=== PATIENT | female | born 1955 | race Caucasian/White ===

== ENCOUNTER 2022-03-15 11:57 | Observation (INO) | payer MEDICARE, SELFPAY ==
[2022-03-15] VITALS (93 sets, daily range): BP systolic 85–138; BP diastolic 71–104; PULSE 111–147; RESP 20–51; TEMP 36.7–37.2; O2SAT 78–100; BMI 12.9
--- NOTE | 2022-03-15 12:03 | XR_ITS ---
WS: [id number] EXAMINATION: XR chest 1V portable [id number] REASON FOR EXAM: resp failure COMPARISON: None available. ORDER DATE: 03/15/2022 12:03 PM TECHNIQUE: A single, portable frontal chest x-ray was obtained. X-RAY FINDINGS: The lungs are clear with generalized hyperinflation. Pleural spaces are clear. No pleural effusions o r pneumothorax. Cardiomediastinal silhouette is unremarkable except for minimal atherosclerotic aortic change. No pastora dence for pulmonary edema. Soft tissue and osseous structures are unremarkable. Nipple shadow superimposing the left mid lateral lung but at the same level as the right nipple which is further lateral in position.. XR/XR chest 1V portable [id number] IMPRESSION: Diffuse COPD
--- NOTE | 2022-03-15 12:09 | P.HP_ITS ---
Providers/Chief Complaint Admitting Physician: Gaurav Wyman MD Chief Complaint: Flu History of Present Illness Carolina Cortez is a 66 year old female transferred from [facility] with respiratory failure. Patient herself cannot answer any questions on arrival. From my understanding she received a fair amount of Versed in route for difficulty keeping BiPAP on. It is my understanding she presented there with shortness of breath. She did not have any chest discomfort. There are notes that she uses 5 L of oxygen at home chronically. She denied any chest discomfort, but did complain of a chronic cough. In the emergency department she was diagnosed with influenza, and her troponin was also noted to be elevated. From their note she had no evidence of non-ST elevation myocardial infarction. They initiated BiPAP for shortness of breath, she received Solu- Medrol, ceftriaxone, heparin, Zithromax. Daughter arrives later, and confirms the above history. 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 This was a hospitalization at [facility] at which time she had COVID. It is unclear what investigation she had performed. Review of Systems General: Reports: ROS unobtainable due to mental status Medications/Allergies Allergies Allergy/AdvReac Type Severity Reaction Status Date / Time No Known Allergies Allergy Verified 03/15/22 12:38 PFSH Acute PFSH: Medical History (Updated 03/15/22 @ 14:36 by Gaurav Wyman MD) COPD (chronic obstructive pulmonary disease) Chronically on 5 L of oxygen Hypertension Malnutrition Surgical History (Updated 03/15/22 @ 14:32 by Gaurav Wyman MD) History of hernia repair History of hysterectomy Family History (Updated 03/15/22 @ 14:32 by Gaurav Wyman MD) Other Cancer Social History (Updated 03/15/22 @ 14:32 by Gaurav Wyman MD) Smoking and tobacco status: former smoker Alcohol intake: never Physical Exam Narrative: General exam demonstrates a confused, very thin female who on redirection can nod her head and follow a few directions briefly. She continues to fight with the BiPAP. HEENT: Atraumatic and normocephalic. Pupils equally round. Oropharynx I did not examine as she is currently on BiPAP Neck is supple no lymphadenopathy thyromegaly Cardiovascular tachycardic, no murmur Lungs diminished breath sounds bilaterally. Few expiratory wheezes. No crackles Abdomen is scaphoid. Positive bowel sounds. No obvious organomegaly exam deferred Extremities no cyanosis clubbing or edema, extremely thin, cap refill brisk Skin no rash Neuro: Confused but no obvious focal deficits Data 03/15/22 13:40 03/15/22 13:40 Other Labs: ABG at outside hospital demonstrated pH 7.42, PCO2 43, PO2 of 124 on 5 L Influenza A PCR was positive, COVID PCR negative Blood cultures were obtained Sodium 137, potassium 4.0, chloride 99, bicarb 24, BUN 8, creatinine 0.43, gl ucose 119, LFTs normal, INR normal, lactic acid 1.2, BNP 556, white blood cell count 8.2, hemoglobin 15.6, platelet count 125 Initial troponin 28, 2-hour 151, 6-hour 312 Chest x-ray no obvious abnormality EKG rate of 107, no evidence of ST elevation but this is a written report and the actual EKG I could not review. A&P Assessment and plan (1) Acute respiratory failure with hypoxia and hypercapnia: Placed on BiPAP/AVAPS Repeat ABG after she is stabilized To facilitate BiPAP Precedex was ordered. She appears to be more comfortable at this current time Suspect this is secondary to COPD exacerbation and influenza. (2) NSTEMI (non-ST elevated myocardial infarction): Suspect this is secondary to type II elevation Request records from hospitalization at [facility] Check echocardiogram For now full dose anticoagulation, aspirin, statin (3) Acute exacerbation of chronic obstructive airways disease: IV Solu-Medrol 60 mg every 12 hours DuoNeb every 4 hours Budesonide AVAPS (4) Hypertension: Will reconcile med list Currently blood pressure stable (5) Protein calorie malnutrition: Appears to have at least moderate to severe protein calorie malnutrition From my understanding she is on a medication to try to increase caloric intake at home. This will become clearer when medicine list is reconciled Overall she is significantly frail, and this can complicate her hospitalization greatly. Discussed in detail with daughter. Plan Other medical problems as outlined in past medical history Full code currently, but discussed in detail with daughter. She will clarify with family DVT prophylaxis with full dose Lovenox currently. Pepcid for GI prophylaxis Attestations Medical Necessity Statement*: Will need greater than 2 midnight stay for evaluation and treatment of acute respiratory failure Critical Care Time: The high probability of a clinically significant, sudden or life threatening deterioration of the patient's [pulmonary, cardiac] system(s) required my full and direct attention, intervention and personal management. The critical care time is as shown. 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
[2022-03-15 12:28] LABS: ABG PH Result 7.23 (7.35-7.45); Arterial Blood Gas Hematocrit 49.5 % (37-47); Base Excess ABG -2.5 mmol/L (-2.0-2.0); Blood Gas Allen Test Pos; Blood Gas LPM 4.5 %; Blood Gas Operator Identificat CAK; Blood Gas Sample Site Radial, right; Blood Gas Sample Type Arterial; HCO3 ABG 26.8 mmol/L (22-26); Oxygen Device NC; PO2 ABG 48.2 mmHg (80.0-100.0)
[2022-03-15 12:33] LABS: ABG PCO2 63.8 mmHg (35-45)
[2022-03-15] MEDS: ipratropium-albuterol 3 mL Neb INHALATION ×3 (12:35→19:46)
[2022-03-15] MEDS: dexmedetomidine 400 MCG in sodium chloride 0.9% (100 ml) 100 ML IV (12:52)
--- NOTE | 2022-03-15 13:08 | ECG_ITS ---
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 Measurements Intervals [place] Rate: 134 P: 92 CT: 130 QRS: 82 QRSD: 99 T: 90 QT: 289 QTc: 432 Interpretive Statements SINUS TACHYCARDIA WITH OCCASIONAL VENTRICULAR PREMATURE COMPLEXES INDETERMINATE AXIS LOW QRS VOLTAGE IN EXTREMITY LEADS [QRS DEFLECTION < 0.5 mV IN LIMB LEADS] ANTERIOR MYOCARDIAL INFARCTION , OF INDETERMINATE AGE [40+ ms Q WAVE AND/OR ST/T ABNORMALITY IN V3/V4] No previous ECG available for comparison Electronically Signed On 03-15-2022 13:14:30 MICROBIOLOGICAL LAB TECHNICIAN by Kelly Hameed M.D. [id number]
[2022-03-15] MEDS: vancomycin 500 MG in sodium chloride 0.9% (plus) 100 ML 200 MG IV (13:32)
[2022-03-15] MEDS: levofloxacin-dextrose 5 % 750 MG/150 ML PREMIX 100 MG IV (13:41)
[2022-03-15] MEDS: famotidine 20 mg/2 mL INJ IVP (13:44)
[2022-03-15 14:01] LABS: Basophils % 0.1 %; Hematocrit 50.2 % (37.0-47.0); Hemoglobin 15.5 g/dL (11.5-15.3); Lymphocytes # 0.6 10^3/uL (0.8-4.8); Lymphocytes % 4.5 %; Mean Corpuscular HGB Conc 30.9 g/dL (30.0-36.0); Mean Corpuscular Hemoglobin 30.3 pg (28.0-34.0); Mean Corpuscular Volume 98.2 fl (81-99); Mean Platelet Volume 12.7 fL (7.4-10.4); Monocytes # 1.1 10^3/uL (0.2-0.9); Monocytes % 8.1 %; Neutrophils # 12.14 10^3/uL (1.8-7.7); Neutrophils % 86.7 %; Nucleated Red Blood Cells % 0 %; Platelet Count 149 10^3/cmm (130-400); Red Blood Count 5.11 10^6/uL (4.1-5.3); Red Cell Distribution Width 13.3 % (12.1-15.1)
[2022-03-15 14:15] LABS: Magnesium 2.3 mg/dL (1.7-2.3)
[2022-03-15 14:18] LABS: Troponin T (5th) Once 381 ng/L (0-10)
--- NOTE | 2022-03-15 14:28 | USCV_ITS ---
Carolina Cortez Age: 66 Gender: F : 1955 Exam Date: 03/15/2022 15:53 Ordering Phys: Gaurav Wyman MD Technologist: CT [place]am [place] [facility] [place] Indication: sob PROCEDURES: The venous duplex Doppler examination of both lower extremities was performed in the standard fashion. In addition, the posterior tibial and peroneal trunk were evaluated. Bilaterally, the common femoral, superficial femoral, profunda femoral, popliteal, posterior tibial, greater saphenous veins, and the peroneal trunk were identified and interrogated in the standard fashion. FINDINGS: Normal 2-D Doppler and augmentation and compressibility throughout the lower extremity venous structures. Additional imaging through the proximal calf veins also reveals no thrombus. Limited evaluation of the greater saphenous vein is patent with no thrombus. CONCLUSIONS No DVT bilateral lower extremities. Dr. Myrtle Leong DO (Electronically Signed) Final Date: 15 March 2022 16:34 S
[2022-03-15 14:32] LABS: Alanine Aminotransferase 19 U/L (0-33); Albumin Level 3.9 g/dL (3.5-5.2); Alkaline Phosphatase 88 U/L (35-105); Anion Gap 19.7 (5-19); Aspartate Amino Transferase 37 U/L (0-32); Blood Urea Nitrogen 19 mg/dL (8-23); Carbon Dioxide 26 mmol/L (22-29); Chloride 99 mmol/L (98-107); Glucose 123 mg/dL (65-115); Osmolality Calculated 294 mOsm/kg (285-295); Potassium 4.7 mmol/L (3.5-5.1); Sodium 140 mmol/L (136-145); Total Bilirubin 0.3 mg/dL (0.15-1.2); Total Protein 6.9 g/dL (6.6-8.7)
[2022-03-15 15:02] LABS: ABG PCO2 44.7 mmHg (35-45); Arterial Blood Gas Hematocrit 44.5 % (37-47); Blood Gas Allen Test Pos; Blood Gas Operator Identificat CAK; Blood Gas Sample Site Radial, right; Blood Gas Sample Type Arterial; Carboxyhemoglobin 0.7 %THgb (0.4-20.1); HCO3 ABG 27.4 mmol/L (22-26); HGB O2 Sat 97.9 % (95-100); Ionized Calcium Level - ABG 1.1 mmol/L (1.1-1.4); Methemoglobin 0.8 % (0.4-1.5); Oxygen Device BIPAP; Oxygen Saturation ABG 99.4; Potassium Level - ABG 4.3 mmol/L (3.5-5.0); Total Hemoglobin 14.5 g/dL (12-16)
--- NOTE | 2022-03-15 15:16 | PC.PHAR ---
pts daughter verified pts medication-pts daughter states the pt had a build up of metoprolol er 25mg daily ext med history shows last filled 11/12/21 90d/s-rx filled 01/14/22 90d/s for lexapro 5mg daily-pts daughter states pt was on 10mg daily filled 12/24/21 90d/s daughter states was changed to 5mg daily-ext med history shows buspar 5mg tid prn last filled 12/10/21 30d/s pts daughter states pt only takes prn-notes are made in the pharmacy comments
[2022-03-15] MEDS: enoxaparin 30 mg/0.3 mL Syringe SUBCUT (16:17)
[2022-03-15] MEDS: budesonide 0.5 mg/2 mL Neb INHALATION (19:46)
[2022-03-16] VITALS (74 sets, daily range): BP systolic 91–123; BP diastolic 66–91; PULSE 96–124; RESP 16–29; TEMP 36.6–37.5; O2SAT 97–100; BMI 12.9
[2022-03-16] MEDS: famotidine 20 mg/2 mL INJ IVP ×3 (00:11→23:37)
[2022-03-16] MEDS: enoxaparin 30 mg/0.3 mL Syringe SUBCUT ×2 (03:21→13:52)
[2022-03-16] MEDS: ipratropium-albuterol 3 mL Neb INHALATION ×6 (03:29→23:16)
[2022-03-16 04:57] LABS: Hematocrit 46.8 % (37.0-47.0); Hemoglobin 14.6 g/dL (11.5-15.3); Lymphocytes # 0.3 10^3/uL (0.8-4.8); Lymphocytes % 5.5 %; Mean Corpuscular HGB Conc 31.2 g/dL (30.0-36.0); Mean Corpuscular Volume 96.3 fl (81-99); Mean Platelet Volume 13.1 fL (7.4-10.4); Monocytes # 0.3 10^3/uL (0.2-0.9); Monocytes % 5.1 %; Neutrophils # 5.03 10^3/uL (1.8-7.7); Nucleated Red Blood Cells % 0 %; Platelet Count 125 10^3/cmm (130-400); Red Blood Count 4.86 10^6/uL (4.1-5.3); Red Cell Distribution Width 13.4 % (12.1-15.1); White Blood Count 5.7 10^3/uL (4.0-10.0)
[2022-03-16 05:19] LABS: Alanine Aminotransferase 19 U/L (0-33); Albumin Level 3.6 g/dL (3.5-5.2); Alkaline Phosphatase 79 U/L (35-105); Anion Gap 17.4 (5-19); Aspartate Amino Transferase 34 U/L (0-32); Blood Urea Nitrogen 22 mg/dL (8-23); Calcium 9.1 mg/dL (8.5-10.5); Carbon Dioxide 26 mmol/L (22-29); Chloride 99 mmol/L (98-107); Chol HDL Ratio 2.72 mg/dL (0.0-4.40); Cholesterol 185 mg/dL (0-200); Globulin 2.9 g/dL (1.3-4.6); Glomerular Filtration Rate 123.4 mL/min (90-130); Glucose 103 mg/dL (65-115); HDL Cholesterol 68 mg/dL (60-100); LDL Cholesterol Calculated 95 mg/dL (50-129); Osmolality Calculated 290 mOsm/kg (285-295); Potassium 4.4 mmol/L (3.5-5.1); Sodium 138 mmol/L (136-145); Total Bilirubin 0.3 mg/dL (0.15-1.2); Total Protein 6.5 g/dL (6.6-8.7); Triglycerides 108 mg/dL (0-150)
[2022-03-16 05:40] LABS: Add RBC Morph Yes; RBC Morph Comp No
[2022-03-16 05:42] LABS: Poikilocytosis 1+; Tear Drop Cells Trace
--- NOTE | 2022-03-16 06:00 | USCV_ITS ---
Carolina Cortez Age: 66 Gender: F : 1955 Exam Date: 03/16/2022 07:47 Ordering Phys: Gaurav Wyman MD Technologist: JOAQUIN Exam Location: [facility] [place] Indication: elevated trop BP: 113 / 84 HR: 98 Rhythm: Sinus Technical Quality: Adequate MEASUREMENTS (Male / Female) Normal Values 2D ECHO LV Diastolic Diameter PLAX 3.5 cm 4.2 - 5.9 / 3.9 - 5.3 cm LV Systolic Diameter PLAX 2.4 cm IVS Diastolic Thickness 0.6 cm 0.6 - 1.0 / 0.6 - 0.9 cm IVS Systolic Thickness 0.7 cm LVPW Diastolic Thickness 0.6 cm 0.6 - 1.0 / 0.6 - 0.9 cm LVPW Systolic Thickness 0.8 cm LVOT Diameter 2.0 cm LV Ejection Fraction 2D Teich 62.3 % LV Ejection Fraction MOD 2C 59.2 % LV Ejection Fraction 2C AL 60.1 % LA Diameter 2.0 cm IVC Diameter 2.1 cm M-MODE Aortic Annulus Diameter 2.7 cm LA Ao Ratio MM 0.8 MV E Point Septal Separation 0.4 cm DOPPLER AV Peak Velocity 60.0 cm/s LVOT Peak Velocity 59.0 cm/s AV Area Cont Eq vti 2.3 cm squared AV Area Cont Eq pk 3.1 cm squared MV Area PHT 7.9 cm squared Mitral E to A Ratio 1.7 MV E' Velocity 42.0 cm/s Mitral E to MV E' Ratio 8.7 Mitral E to LV E' Lateral Ratio 6.6 Mitral E to LV E' Septal Ratio 12.8 TR Peak Velocity 284.7 cm/s TR Peak Gradient 32.4 mmHg TV Peak E Velocity 35.0 cm/s PV Peak Velocity 83.0 cm/s FINDINGS Left Ventricle Normal left ventricular cavity size. Normal left ventricular wall thickness. Moderately decreased left ventricular systolic function. Regional wall motion abnormalities (see diagram). There is moderate to severe hypokinesis of the mid anterior wall, anterior apex and apical septum. There is also hypokinesis of the mid septum. There is akinesis of the apex. The overall ejection fraction is about 40%. Grade 1 diastolic dysfunction. Right Ventricle Normal right ventricular size and systolic function. Right Atrium The right atrium is normal in size. Left Atrium The left atrium is normal in size. Mitral Valve Structurally normal mitral valve without significant stenosis or prolapse. There is no mitral regurgitation. Aortic Valve Structurally normal aortic valve without significant sclerosis or stenosis. There is no aortic regurgitation. Tricuspid Valve Structurally normal tricuspid valve without significant stenosis or regurgitation. Pulmonary artery systolic pressure is normal. Pulmonic Valve Pulmonic valve not well visualized. Pericardium There is a small pericardial effusion which is hemodynamically insignificant. Aorta Normal ascending aorta dimension. IVC The inferior vena cava appears normal. CONCLUSIONS Normal left ventricular cavity size. Normal left ventricular wall thickness. Moderately decreased left ventricular systolic function. Regional wall motion abnormalities (see diagram). There is moderate to severe hypokinesis of the mid anterior wall, anterior apex and apical septum. There is also hypokinesis of the mid septum. There is akinesis of the apex. The overall ejection fraction is about 40%. Grade 1 diastolic dysfunction. There is a small pericardial effusion which is hemodynamically insignificant. The regional wall motion disturbances suggest a prior myocardial infarction in the distribution of the left anterior descending coronary artery. There are no prior echocardiogram studies to compare. Dr. Narendra Diallo MD (Electronically Signed) Final Date: 16 March 2022 13:53 S
[2022-03-16] MEDS: budesonide 0.5 mg/2 mL Neb INHALATION ×2 (08:27→20:05)
[2022-03-16] MEDS: escitalopram 10 mg Tablet 5 MG PO (09:04)
[2022-03-16] MEDS: aspirin 81 mg EC Tablet PO (09:04)
[2022-03-16] MEDS: metoprolol succinate ER (24 HR) 25 mg Tablet PO (09:04)
[2022-03-16] MEDS: oseltamivir phosphate 75 mg Capsule PO ×2 (09:05→17:41)
[2022-03-16 09:39] LABS: Troponin T (5th) Once 191 ng/L (0-10)
[2022-03-16] MEDS: lanolin oint 7 gm 1 APPLIC TOPICAL (10:33)
[2022-03-16] MEDS: levofloxacin-dextrose 5 % 750 MG/150 ML PREMIX 100 MG IV (11:36)
[2022-03-16] MEDS: ondansetron 2 mg/ML SDV 2 mL 4 MG IVP (12:55)
[2022-03-16] MEDS: vancomycin 500 MG in sodium chloride 0.9% (plus) 100 ML 200 MG IV (13:51)
--- NOTE | 2022-03-16 19:10 | P.PN_ITS ---
Subjective Subjective: Ms. Cortez was seen this morning, she was on BiPAP, stated shortness of breath has improved, has definitely significant component of anxiety, denied any chest pain, cough. We will try and transition her to nasal cannula and use BiPAP as needed. Medications: Medication Review Details: Generic Name Dose Route Start Last Admin Trade Name Freq PRN Reason Stop Dose Admin Albuterol/Ipratrop ium 3 ml 03/15/22 12:15 03/16/22 16:06 Ipratropium-Albu terol 3 Ml Neb INHALATION 3 ml Q4H LAMIN Administration Aspirin 81 mg 03/16/22 09:00 03/16/22 09:04 Aspirin 81 Mg Ec Tablet PO 81 mg DAILY LAMIN Administration Atorvastatin Calci um 40 mg 03/15/22 21:00 03/15/22 20:06 Atorvastatin 40 Mg Tablet PO Not Given BEDTIME LAMIN Budesonide 0.5 mg 03/15/22 20:00 03/16/22 08:27 Budesonide 0.5 M g/2 Ml Neb INHALATION 0.5 mg BID.RESPIRATORY S CH Administration Enoxaparin Sodium 30 mg 03/15/22 14:30 03/16/22 13:52 Enoxaparin 30 Mg /0.3 Ml Syringe SUBCUT 30 mg Q12H LAMIN Administration Escitalopram Oxala te 5 mg 03/16/22 09:00 03/16/22 09:04 Escitalopram 10 Mg Tablet PO 5 mg DAILY LAMIN Administration Famotidine 20 mg 03/15/22 12:15 03/16/22 11:35 Famotidine 20 Mg /2 Ml Inj IVP 20 mg Q12H LAMIN Administration Levofloxacin/Dextr ose 750 mg in 150 mls @ 100 mls/hr 03/15/22 12:15 03/16/22 11:36 Levaquin-D5w IV 100 mls/hr Q24H LAMIN Administration Protocol Vancomycin HCl 500 mg/ Sodium 100 mls @ 200 mls /hr 03/16/22 13:30 03/16/22 13:51 Chloride IV 200 mls/hr Q24H LAMIN Administration Lanolin 1 applic 03/16/22 10:30 03/16/22 10:33 Lanolin Oint 7 G m TOPICAL 1 applic PRN PRN Administration DRYNESS Methylprednisolone Sodium Succinate 60 mg 03/15/22 12:15 03/16/22 11:35 Methylprednisolo ne Sod Succ 125 Mg /2 Ml Inj IVP 60 mg Q12H LAMIN Administration Metoprolol Succina te 25 mg 03/16/22 09:00 03/16/22 09:04 Metoprolol Succi ebony Er (24 Hr) 25 Mg Tablet PO 25 mg DAILY LAMIN Administration Ondansetron HCl 4 mg 03/15/22 12:03 03/16/22 12:55 Ondansetron 2 Mg /Ml Sdv 2 Ml IVP 4 mg Q6H PRN Administration NAUSEA AND VOMITI NG Oseltamivir Phosph ate 75 mg 03/15/22 18:00 03/16/22 17:41 Oseltamivir Phos phate 75 Mg Capsul e PO 75 mg BID LAMIN Administration Vitals/I&O/Wt Last Vital Signs Temp 98.4 F 03/16/22 15:00 Pulse 116 H 03/16/22 18:00 Resp 17 03/16/22 18:00 BP 120/91 03/16/22 18:00 Pulse Ox 98 03/16/22 18:00 O2 Del Method 03/16/22 16:06 O2 Flow Rate 3 03/16/22 16:06 FiO2 30 03/16/22 13:55 03/16/22 03/16/22 03/16/22 06:59 14:59 22:59 Intake Total 236.231 / 236.231 300 / 536.231 Output Total 100 / 500 400 / 400 Balance -100 / -243.461 236.231 / 236.231 -100 / 136.231 Weight last 48 hrs Weight 29.937 kg Weight 29.937 kg Weight 29.937 kg Physical Exam Resp: OTHER: Diminished air entry bilaterally Cardio: COMMON NORMALS: regular rate, regular rhythm, S1 normal heart sound present, S2 normal heart sound present, No gallops present (Cardio), No murmurs present (Cardio), No rub (Cardio) and Peripheral pulses 2+ throughout RATE: regular rate RHYTHM: regular rhythm HEART SOUNDS: S1 normal heart sound present and S2 normal heart sound present PERIPHERAL PULSES: Peripheral pulses 2+ throughout GI: COMMON NORMALS: Normal to inspection, nondistended, normoactive bowel sounds present, Soft to palpation, non-tender, No hepatosplenomegaly present and no masses AUSCULTATION: Yes normoactive bowel sounds PALPATION: Yes Soft to palpation and Yes No hepatosplenomegaly present RECTAL EXAM: deferred Extremity: COMMON NORMALS: no clubbing, cyanosis or edema and no pedal edema Urinary Catheter Management: Lazar Latex: Cath Placed During This Visit: yes Reason for Continuing Indwelling Catheter: Accurate Measurement of Urinary Output in Critically Ill Patients Urinary Catheter Date of Insertion: 03/15/22 Urinary Catheter Time of Insertion: 20:07 Data 03/16/22 04:27 03/16/22 04:27 Micro: Microbiology 03/15/22 13:45 Blood Culture - Preliminary Blood NEGATIVE TO DATE 03/15/22 13:40 Blood Culture - Preliminary Blood NEGATIVE TO DATE 03/15/22 12:35 MRSA Culture - Final Nose A&P Assessment and plan (1) Acute respiratory failure with hypoxia and hypercapnia: Placed on BiPAP/AVAPS Repeat ABG after she is stabilized To facilitate BiPAP Precedex was ordered. She appears to be more comfortable at this current time Suspect this is secondary to COPD exacerbation and influenza. (2) NSTEMI (non-ST elevated myocardial infarction): Suspect this is secondary to type II elevation Request records from hospitalization at [facility] Check echocardiogram For now full dose anticoagulation, aspirin, statin (3) Acute exacerbation of chronic obstructive airways disease: IV Solu-Medrol 60 mg every 12 hours DuoNeb every 4 hours Budesonide AVAPS (4) Hypertension: Will reconcile med list Currently blood pressure stable (5) Protein calorie malnutrition: Appears to have at least moderate to severe protein calorie malnutrition From my understanding she is on a medication to try to increase caloric intake at home. This will become clearer when medicine list is reconciled Overall she is significantly frail, and this can complicate her hospitalization greatly. Discussed in detail with daughter. Plan Other medical problems as outlined in past medical history Full code currently, but discussed in detail with daughter. She will clarify with family DVT prophylaxis with full dose Lovenox currently. Pepcid for GI prophylaxis Attestations Medical Necessity Statement*: Patient is in hospital for management of respiratory failure. 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
[2022-03-16] MEDS: atorvastatin 40 mg Tablet PO (20:42)
[2022-03-16] MEDS: LORazepam 2 mg/mL INJ 1 mL 1 MG IVP (20:42)
[2022-03-17] VITALS (32 sets, daily range): BP systolic 95–143; BP diastolic 65–106; PULSE 91–123; RESP 14–24; TEMP 36.5–37.1; O2SAT 95–100
[2022-03-17] MEDS: enoxaparin 30 mg/0.3 mL Syringe SUBCUT (01:55)
[2022-03-17] MEDS: ipratropium-albuterol 3 mL Neb INHALATION ×3 (04:10→11:38)
[2022-03-17 05:11] LABS: Hematocrit 51.2 % (37.0-47.0); Hemoglobin 15.8 g/dL (11.5-15.3); Lymphocytes # 0.4 10^3/uL (0.8-4.8); Lymphocytes % 7.5 %; Mean Corpuscular HGB Conc 30.9 g/dL (30.0-36.0); Mean Corpuscular Hemoglobin 30.2 pg (28.0-34.0); Mean Corpuscular Volume 97.7 fl (81-99); Mean Platelet Volume 12.7 fL (7.4-10.4); Monocytes # 0.3 10^3/uL (0.2-0.9); Monocytes % 5.2 %; Neutrophils # 4.87 10^3/uL (1.8-7.7); Neutrophils % 86.9 %; Nucleated Red Blood Cells % 0 %; Platelet Count 158 10^3/cmm (130-400); Red Blood Count 5.24 10^6/uL (4.1-5.3); Red Cell Distribution Width 13.2 % (12.1-15.1); White Blood Count 5.6 10^3/uL (4.0-10.0)
[2022-03-17 05:34] LABS: Anion Gap 12.5 (5-19); Blood Urea Nitrogen 24 mg/dL (8-23); Calcium 9.4 mg/dL (8.5-10.5); Carbon Dioxide 33 mmol/L (22-29); Chloride 93 mmol/L (98-107); Glomerular Filtration Rate 123.4 mL/min (90-130); Glucose 133 mg/dL (65-115); Osmolality Calculated 284 mOsm/kg (285-295); Potassium 4.5 mmol/L (3.5-5.1); Sodium 134 mmol/L (136-145)
[2022-03-17] MEDS: acetaminophen 325 mg Tablet 650 MG PO (06:00)
--- NOTE | 2022-03-17 06:13 | PC.NURSE ---
at 0600 this RN enter to assess patient. This RN noted left pupil is at least 2 sized bigger than the right. pupils are brisk and reactive. 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 pt did complain of headache, which was treated with Tylenol. MD made aware of all above.
[2022-03-17] MEDS: budesonide 0.5 mg/2 mL Neb INHALATION (07:18)
[2022-03-17] MEDS: LORazepam 2 mg/mL INJ 1 mL 1 MG IVP (07:48)
[2022-03-17] MEDS: aspirin 81 mg EC Tablet PO (08:20)
[2022-03-17] MEDS: escitalopram 10 mg Tablet 5 MG PO (08:20)
[2022-03-17] MEDS: metoprolol succinate ER (24 HR) 25 mg Tablet PO (08:20)
[2022-03-17] MEDS: oseltamivir phosphate 75 mg Capsule PO (08:20)
[2022-03-17] MEDS: levofloxacin-dextrose 5 % 750 MG/150 ML PREMIX 150 MG IV (12:14)
[2022-03-17] MEDS: famotidine 20 mg/2 mL INJ IVP (12:14)
--- NOTE | 2022-03-17 13:03 | P.DS_ITS ---
Discharge Providers Date of Admission: 03/15/22 11:57 Date of Discharge: March 17, 2022 Attending Provider at Admission: Gaurav Wyman MD Attending Provider at Discharge: Jac Wells MD Diagnoses at Discharge Discharge Diagnosis (1) Acute respiratory failure with hypoxia and hypercapnia: Status: Acute (2) NSTEMI (non-ST elevated myocardial infarction): Status: Acute (3) Acute exacerbation of chronic obstructive airways disease: Status: Acute (4) Hypertension: Status: Acute (5) Protein calorie malnutrition: Status: Acute Reason for Visit Reason for Visit: Flu Physical Exam Urinary Catheter Management: Lazar Latex: Cath Placed During This Visit: yes Reason for Continuing Indwelling Catheter: Accurate Measurement of Urinary Output in Critically Ill Patients Urinary Catheter Date of Insertion: 03/15/22 Urinary Catheter Time of Insertion: 20:07 Discharge Data Studies Completed and Pending Completed Studies During Hospitalization Category Date Time Status XR chest 1V portable [id number] Routine Exams 03/15/22 12:03 [place] [id number] Routine Ultrasound 03/15/22 14:28 Completed CV. echo complete* [id number] Routine Ultrasound 03/16/22 06:00 Completed Pending at discharge Category Date Time Status BMP [Basic Metabolic Panel] AM LABS Lab 03/18/22 04:00 Ordered BMP [Basic Metabolic Panel] AM LABS Lab 03/19/22 04:00 Ordered Blood Culture Routine Lab 03/15/22 13:45 Results CBC Auto Diff [Complete Blood Count w/Auto] AM LABS Lab 03/18/22 04:00 Ordered CBC Auto Diff [Complete Blood Count w/Auto] AM LABS Lab 03/19/22 04:00 Ordered MRSA by PCR Routine Lab 03/16/22 23:16 Received Sputum Culture Routine Lab 03/15/22 12:03 Uncollected Vancomycin Trough Timed Lab 03/18/22 13:00 Ordered Radiology Impressions Chest X-Ray 03/15/22 12:03 IMPRESSION: Diffuse COPD Laboratory Results WBC 5.6 10^3/uL (4.0-10.0) 03/17/22 04:44 RBC 5.24 10^6/uL (4.1-5.3) 03/17/22 04:44 Hgb 15.8 g/dL (11.5-15.3) H 03/17/22 04:44 Hct 51.2 % (37.0-47.0) H 03/17/22 04:44 MCV 97.7 fl (81-99) 03/17/22 04:44 MCH 30.2 pg (28.0-34.0) 03/17/22 04:44 MCHC 30.9 g/dL (30.0-36.0) 03/17/22 04:44 RDW 13.2 % (12.1-15.1) 03/17/22 04:44 Plt Count 158 10^3/cmm (130-400) 03/17/22 04:44 MPV 12.7 fL (7.4-10.4) H 03/17/22 04:44 Neut % (Auto) 86.9 % 03/17/22 04:44 Lymph % (Auto) 7.5 % 03/17/22 04:44 [place] % (Auto) 5.2 % 03/17/22 04:44 Eos % (Auto) 0.0 % 03/17/22 04:44 Baso % (Auto) 0.0 % 03/17/22 04:44 Neut # (Auto) 4.87 10^3/uL (1.8-7.7) 03/17/22 04:44 Lymph # (Auto) 0.4 10^3/uL (0.8-4.8) L 03/17/22 04:44 [place] # (Auto) 0.3 10^3/uL (0.2-0.9) 03/17/22 04:44 Eos # (Auto) 0.0 10^3/uL (0.0-0.8) 03/17/22 04:44 Baso # (Auto) 0.0 10^3/uL (0.0-0.1) 03/17/22 04:44 Nucleated RBC % (auto) 0 % 03/17/22 04:44 Nucleated RBCs # 0.0 /100WBC 03/17/22 04:44 Poikilocytosis 1+ H 03/16/22 04:27 Tear Drop Cells Trace 03/16/22 04:27 Specimen Type Arterial 03/15/22 14:52 Sample Site Radial, right 03/15/22 14:52 ABG pH 7.40 (7.35-7.45) 03/15/22 14:52 ABG pCO2 44.7 mmHg (35-45) 03/15/22 14:52 ABG pO2 124.0 mmHg (80.0-100.0) H 03/15/22 14:52 ABG HCO3 27.4 mmol/L (22-26) H 03/15/22 14:52 ABG O2 Saturation 99.4 03/15/22 14:52 ABG Base Excess 2.0 mmol/L (-2.0-2.0) 03/15/22 14:52 Gama Test Pos 03/15/22 14:52 A-a O2 Gradient 9.0 mmHg (5-10) 03/15/22 14:52 Hematocrit 44.5 % (37-47) 03/15/22 14:52 Hgb O2 Saturation 97.9 % (95-100) 03/15/22 14:52 Carboxyhemoglobin 0.7 %THgb (0.4-20.1) 03/15/22 14:52 Methemoglobin 0.8 % (0.4-1.5) 03/15/22 14:52 Total Hemoglobin 14.5 g/dL (12-16) 03/15/22 14:52 Sodium 137.0 mmol/L (131-143) 03/15/22 14:52 Potassium 4.3 mmol/L (3.5-5.0) 03/15/22 14:52 Glucose 138.0 mg/dL (70-115) H 03/15/22 14:52 Ionized Calcium 1.1 mmol/L (1.1-1.4) 03/15/22 14:52 O2 Delivery Device Bipap 03/15/22 14:52 O2 Liters/Min 4.5 % 03/15/22 12:15 FiO2 35.0 % 03/15/22 14:52 Work Distributor ID Cak 03/15/22 14:52 Sodium 134 mmol/L (136-145) L 03/17/22 04:44 Potassium 4.5 mmol/L (3.5-5.1) 03/17/22 04:44 Chloride 93 mmol/L (98-107) L 03/17/22 04:44 Carbon Dioxide 33 mmol/L (22-29) H 03/17/22 04:44 Anion Gap 12.5 (5-19) 03/17/22 04:44 BUN 24 mg/dL (8-23) H 03/17/22 04:44 Creatinine 0.5 mg/dL (0.5-0.9) 03/17/22 04:44 GFR Calculation 123.4 mL/min (90-130) 03/17/22 04:44 Glucose 133 mg/dL (65-115) H 03/17/22 04:44 Calculated Osmolality 284 mOsm/kg (285-295) L 03/17/22 04:44 Calcium 9.4 mg/dL (8.5-10.5) 03/17/22 04:44 Magnesium 2.3 mg/dL (1.7-2.3) 03/15/22 13:40 Total Bilirubin 0.3 mg/dL (0.15-1.2) 03/16/22 04:27 AST 34 U/L (0-32) H 03/16/22 04:27 ALT 19 U/L (0-33) 03/16/22 04:27 Alkaline Phosphatase 79 U/L (35-105) 03/16/22 04:27 Troponin T Gen 5 ng/L 191 ng/L (0-10) H* 03/16/22 04:27 Total Protein 6.5 g/dL (6.6-8.7) L 03/16/22 04:27 Albumin 3.6 g/dL (3.5-5.2) 03/16/22 04:27 Globulin 2.9 g/dL (1.3-4.6) 03/16/22 04:27 Triglycerides 108 mg/dL (0-150) 03/16/22 04:27 Cholesterol 185 mg/dL (0-200) 03/16/22 04:27 LDL Cholesterol, Calc 95 mg/dL (50-129) 03/16/22 04:27 HDL Cholesterol 68 mg/dL (60-100) 03/16/22 04:27 LDL/HDL Ratio 1.40 RATIO (0.00-3.22) 03/16/22 04:27 Cholesterol/HDL Ratio 2.72 mg/dL (0.0-4.40) 03/16/22 04:27 Vitals Last Vital Signs Temp 98.7 F 03/17/22 12:00 Pulse 102 H 03/17/22 12:00 Resp 23 H 03/17/22 12:00 BP 143/91 03/17/22 12:00 Pulse Ox 98 12/11/22 12:00 O2 Del Method 03/17/22 12:00 O2 Flow Rate 3 03/17/22 12:00 FiO2 30 03/17/22 04:13 Discharge Plan Discharge Patient Disposition: Home Condition: Stable Prescriptions: New oseltamivir 75 mg Capsule 75 mg PO BID 4 Days Qty: 8 0RF levofloxacin 500 mg tablet 500 mg PO DAILY 5 Days Qty: 5 0RF prednisone 20 mg tablet 20 mg PO BID 7 Days Qty: 14 0RF Continued buspirone 5 mg tablet 5 mg PO TID PRN (Reason: Anxiety) alendronate 70 mg tablet 70 mg PO Q7D Rx Instructions: on sat cyproheptadine 4 mg tablet 4 mg PO DAILY metoprolol succinate 25 mg tablet extended release 24 hr 25 mg PO DAILY lisinopril 2.5 mg tablet 2.5 mg PO DAILY escitalopram oxalate 5 mg tablet 5 mg PO DAILY levalbuterol tartrate 45 mcg/actuation HFA aerosol inhaler 2 puff INHALATION Q4H PRN (Reason: Shortness Of Breath) Vitamin D3 125 mcg (5,000 unit) Tablet 125 mcg PO DAILY Breztri Aerosphere 160-9-4.8 mcg/actuation HFA aerosol inhaler 2 inh INHALATION BID Discharge Orders: Discharge Order (Routine); Ordered 03/17/22 Ordered By: Jac Wells Patient Instructions: Opioid Safety Coding Level of Care Code Acute Chg FW DC note Diagnoses Acute respiratory failure with hypoxia and hypercapnia J96.01; J96.02 NSTEMI (non-ST elevated myocardial infarction) I21.4 Acute exacerbation of chronic obstructive airways disease J44.1 Hypertension I10 Protein calorie malnutrition E46
--- NOTE | 2022-03-17 15:02 | PC.NURSE ---
Discharged patient. [facility] IVs removed. Lazar discontinued. DIscharge, medication, and appoinment educaiton provided to patient and spouse. We were unable to make appoinement due to this being friday. Patient is aware they will need to make followup appointment and this instruction was also included in discharge packet.
== END 2022-03-17 14:38 | disposition home or self-care (01) ==
LOC: CSU 12:22 → ICU 03-16 02:13 → CSU 03-20 16:13
PROVIDERS: Admitting Provider Internal Medicine; Visit Provider Internal Medicine
DX: J96.01 Acute respiratory failure with hypoxia (principal); J96.02 Acute respiratory failure with hypercapnia; I21.4 Non-ST elevation (NSTEMI) myocardial infarction; J44.1 Chronic obstructive pulmonary disease with (acute) exacerbation; I10 Essential (primary) hypertension; E46 Unspecified protein-calorie malnutrition; Z99.81 Dependence on supplemental oxygen; Z87.891 Personal history of nicotine dependence; Z68.1 Body mass index [BMI] 19.9 or less, adult
CPT/HCPCS: 36415; 36600; 51702; 71045; 80048; 80051; 80053; 80061; 82330; 82803; 82805; 83735; 84484; 85025; 87040; 87641; 93005; 93306; 93970; 94640; 94660; 96372; G0378; G0379; J1650; J1956; J2060; J2405; J2930; J3370; J3490; J7626

== ENCOUNTER 2022-03-17 15:14 | Emergency (ER) | payer MEDICARE, SELFPAY ==
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
[2022-03-17 15:33] VITALS: BP 123/83; PULSE 108; RESP 23; O2SAT 91
[2022-03-17 15:44] VITALS: BP 123/83; PULSE 102; RESP 23; O2SAT 97
--- NOTE | 2022-03-17 16:07 | ECG_ITS ---
[facility] Test Date: 2022-03-17 Pat Name: Carolina Cortez Department: Room: Gender: Female Monitoring Coordinator: : 1955 Requested By: Sincere Ortez Order Number: [id number] Marcio MD: Narendra Diallo M.D. Measurements Intervals [place] Rate: 107 P: 87 MD: 121 QRS: 74 QRSD: 86 T: 118 QT: 308 QTc: 413 Interpretive Statements SINUS TACHYCARDIA POSSIBLE ANTERIOR MYOCARDIAL INFARCTION , OF INDETERMINATE AGE [30 ms Q WAVE IN V3/V4, OR R < 0.2 mV IN V4] MODERATE T-WAVE ABNORMALITY, CONSIDER LATERAL ISCHEMIA [-0.1+ mV T-WAVE IN I/aVL/V5/V6] Compared to ECG 03/15/2022 13:08:55 T-wave abnormality now present Possible ischemia now present Ventricular premature complex(es) no longer present Indeterminate axis no longer present Myocardial infarct finding still present Electronically Signed On 03-18-2022 15:00:51 CAR BRACER by Narendra Diallo M.D. [email or web address]
[2022-03-17 16:37] VITALS: BP 128/78; PULSE 101; RESP 20; O2SAT 97
== END 2022-03-17 16:38 | disposition home or self-care (01) ==
PROVIDERS: Emergency Provider Emergency Medicine
DX: Z04.1 Encounter for examination and observation following transport accident (principal)
CPT/HCPCS: 93005; 99283